=== PATIENT | female | born 1940 | race Caucasian/White ===

== ENCOUNTER 2021-07-14 10:07 | Inpatient (IN) | payer OTHER ==
[~2021-07-14] VITALS: Ht 175.3 cm; Wt 65.6 kg
[2021-07-14] MEDS ORDERED: ACETAMINOPHEN 325 MG TAB PO ONE (10:30)
[2021-07-14 11:47] LABS: INR 1.05 (0.9-1.15); Partial Thromboplastin Time 31.1 sec (23.6-33.0)
[2021-07-14 11:55] LABS: Basophils # (auto) 0 10 ^3/uL (0-0.2); Basophils % (auto) 0.1 % (0.0-2.0); Eosinophils # (auto) 0 10 ^3/uL (0-0.8); Hematocrit 43.4 % (36.0-46.0); Hemoglobin 14.5 g/dL (12.2-16.2); Lymphocytes # (auto) 1.3 10 ^3/uL (0.4-5.4); Lymphocytes % (auto) 15.3 % (10.0-50.0); Mean Corpuscular Hemoglobin 30.9 pg (28.0-32.0); Mean Corpuscular Hgb Conc. 33.5 g/dL (32.0-36.0); Mean Corpuscular Volume 92.2 fL (80.0-100.0); Monocytes # (auto) 0.6 10 ^3/uL (0-1.3); Monocytes % (auto) 7.4 % (0.0-12.0); Neutrophils # (auto) 6.7 10 ^3/uL (1.6-8.6); Neutrophils % (auto) 77.2 % (37.0-80.0); Nucleated Red Blood Cells % 0.1 %; White Blood Cell 8.7 10^3/uL (4.4-10.8)
[2021-07-14 11:57] LABS: Albumin 2.9 g/dL (3.4-5.0); Calcium 9.6 mg/dL (8.5-10.1); Potassium 3.9 mmol/L (3.5-5.1)
[2021-07-14 12:03] LABS: BUN/Creatinine Ratio 27.1; Bilirubin, Total 0.5 mg/dL (0.2-1.0); Total Protein 7.4 g/dL (6.4-8.2)
[2021-07-14] MEDS ORDERED: ACETAMINOPHEN 500 MG TAB PO PRN (14:15)
[2021-07-14] MEDS ORDERED: NITROGLYCERIN 0.4 MG SL TAB SL PRN (14:15)
[2021-07-14] MEDS ORDERED: MORPHINE SULFATE INJECTION 2 MG/ML SYRG IV PRN (14:15)
[2021-07-14] MEDS ORDERED: REMDESIVIR PER PHARMACY 0 ML IV SCH (14:15)
[2021-07-14 15:07] LABS: Magnesium 2.6 mg/dL (1.6-2.6)
[2021-07-14 15:15] LABS: CRP High Sensitivity 3.97 mg/dL (< 0.3)
[2021-07-14 15:16] LABS: Thyroid Stimulating Hormone 0.38 uIU/mL (0.358-3.74)
[2021-07-14] MEDS ORDERED: REMDESIVIR 200 MG in NS 210ml LOADING DOSE ADULT IV ONE (16:00)
[2021-07-14 17:00] VITALS: BP 108/61
[2021-07-14 19:00] VITALS: BP 108/61
[2021-07-14] MEDS: BUDESONIDE (INHALATION) 180 MCG IH IN SCH (21:01)
[2021-07-14 21:59] VITALS: BP 119/68
[2021-07-14] MEDS: ENOXAPARIN SOD 40 MG/0.4 ML SYRINGE SC SCH (22:49)
[2021-07-15] MEDS ORDERED: CARV3.1240 PO (04:55)
[2021-07-15] MEDS ORDERED: DONE1TAB88 PO (04:55)
[2021-07-15] MEDS ORDERED: ATOR40TA52 PO (04:55)
[2021-07-15] MEDS ORDERED: FURO20TA3 PO (04:55)
[2021-07-15 05:15] VITALS: BP 129/72
[2021-07-15 06:48] LABS: Basophils # (auto) 0 10 ^3/uL (0-0.2); Basophils % (auto) 0.4 % (0.0-2.0); Eosinophils # (auto) 0 10 ^3/uL (0-0.8); Hemoglobin 14.2 g/dL (12.2-16.2); Lymphocytes # (auto) 1.1 10 ^3/uL (0.4-5.4); Lymphocytes % (auto) 13.7 % (10.0-50.0); Mean Corpuscular Hemoglobin 31.6 pg (28.0-32.0); Mean Corpuscular Hgb Conc. 34.6 g/dL (32.0-36.0); Mean Corpuscular Volume 91.2 fL (80.0-100.0); Monocytes # (auto) 0.6 10 ^3/uL (0-1.3); Monocytes % (auto) 7.2 % (0.0-12.0); Neutrophils # (auto) 6.5 10 ^3/uL (1.6-8.6); Neutrophils % (auto) 78.7 % (37.0-80.0); Nucleated Red Blood Cells % 0.1 %; Red Cell Distribution Width 13.7 % (11.8-14.3); White Blood Cell 8.2 10^3/uL (4.4-10.8)
[2021-07-15 07:05] LABS: Chloride 113 mmol/L (98-107); Potassium 3.9 mmol/L (3.5-5.1); Sodium 145 mmol/L (136-145)
[2021-07-15 07:11] LABS: Alanine Aminotransferase 109 U/L (13-56); Albumin 2.5 g/dL (3.4-5.0); Anion Gap 10 (5-15); Aspartate Aminotransferase 85 U/L (15-37); BUN/Creatinine Ratio 46.6; Bilirubin, Total 0.4 mg/dL (0.2-1.0); Blood Urea Nitrogen 34 mg/dL (7-18); Carbon Dioxide 22 mmol/L (21-32); GFR African American 99 mL/min; GFR Non-African American 82 mL/min; Glucose 95 mg/dL (74-106)
[2021-07-15 07:47] LABS: Alkaline Phosphatase 96 U/L (45-117)
[2021-07-15] MEDS: ALBUTEROL SULF HFA 90MCG INH 200DOSE IN PRN ×2 (08:06→18:45)
[2021-07-15] MEDS: BUDESONIDE (INHALATION) 180 MCG IH IN SCH ×2 (08:06→18:45)
[2021-07-15 09:00] VITALS: BP 116/68
[2021-07-15] MEDS: DexAMETHasone SOD PHOS 10MG/1ML VIAL INJ IV SCH (10:02)
[2021-07-15] MEDS: ZINC SULFATE 220mg CAP or TAB PO SCH (10:02)
[2021-07-15] MEDS: ASCORBIC ACID 1,000 MG TAB PO SCH (10:02)
[2021-07-15] MEDS: ENOXAPARIN SOD 40 MG/0.4 ML SYRINGE SC SCH ×2 (10:02→21:47)
[2021-07-15] MEDS: CHOLECALCIFEROL (VITD3) 2,000 UNIT CAP/TAB PO SCH (10:02)
[2021-07-15] MEDS: AZITHROMYCIN 500MG/ 250ML 250 ML IV SCH (11:28)
[2021-07-15 13:00] VITALS: BP 112/64
[2021-07-15] MEDS: REMDESIVIR 100mg 100 MG in SODIUM CHL 0.9% 230 ML IV SCH (16:20)
[2021-07-15 16:23] VITALS: BP 106/64
[2021-07-15 17:30] VITALS: BP 104/62
[2021-07-15] MEDS: PIPERACILLIN-TAZOB 3.375GM 100 ML IV SCH (17:31)
[2021-07-15 22:00] VITALS: BP 107/67
[2021-07-16 05:00] VITALS: BP 142/80
[2021-07-16 05:24] LABS: Basophils # (auto) 0 10 ^3/uL (0-0.2); Basophils % (auto) 0.1 % (0.0-2.0); Eosinophils # (auto) 0 10 ^3/uL (0-0.8); Hematocrit 39.6 % (36.0-46.0); Hemoglobin 13.8 g/dL (12.2-16.2); Lymphocytes # (auto) 1.3 10 ^3/uL (0.4-5.4); Lymphocytes % (auto) 20.1 % (10.0-50.0); Mean Corpuscular Hemoglobin 31.7 pg (28.0-32.0); Mean Corpuscular Hgb Conc. 34.9 g/dL (32.0-36.0); Mean Corpuscular Volume 91.1 fL (80.0-100.0); Monocytes # (auto) 0.5 10 ^3/uL (0-1.3); Monocytes % (auto) 7.8 % (0.0-12.0); Neutrophils # (auto) 4.5 10 ^3/uL (1.6-8.6); Nucleated Red Blood Cells % 0.1 %; Red Blood Cells 4.35 10^6/uL (4.0-5.20); Red Cell Distribution Width 13.8 % (11.8-14.3); White Blood Cell 6.2 10^3/uL (4.4-10.8)
[2021-07-16 05:41] LABS: Potassium 3.8 mmol/L (3.5-5.1)
[2021-07-16 05:52] LABS: Albumin 2.4 g/dL (3.4-5.0); BUN/Creatinine Ratio 47.9; Bilirubin, Total 0.4 mg/dL (0.2-1.0); Calcium 9.4 mg/dL (8.5-10.1); Total Protein 6.9 g/dL (6.4-8.2)
[2021-07-16] MEDS: ALBUTEROL SULF HFA 90MCG INH 200DOSE IN PRN (06:45)
[2021-07-16] MEDS: BUDESONIDE (INHALATION) 180 MCG IH IN SCH ×2 (06:45→21:40)
[2021-07-16] MEDS: PIPERACILLIN-TAZOB 3.375GM 100 ML IV SCH ×4 (06:48→17:29)
[2021-07-16 08:30] VITALS: BP 106/62
[2021-07-16] MEDS: ENOXAPARIN SOD 40 MG/0.4 ML SYRINGE SC SCH ×2 (09:26→21:16)
[2021-07-16] MEDS: CHOLECALCIFEROL (VITD3) 2,000 UNIT CAP/TAB PO SCH (09:26)
[2021-07-16] MEDS: ZINC SULFATE 220mg CAP or TAB PO SCH (09:26)
[2021-07-16] MEDS: DexAMETHasone SOD PHOS 10MG/1ML VIAL INJ IV SCH (09:26)
[2021-07-16] MEDS: ASCORBIC ACID 1,000 MG TAB PO SCH (09:26)
[2021-07-16] MEDS: AZITHROMYCIN 500MG/ 250ML 250 ML IV SCH (10:10)
[2021-07-16] MEDS ORDERED: Ensure Enlive Strawberry 8oz Bottle PO SCH (12:00)
[2021-07-16] MEDS: Ensure HIGH Protein Chocolate 8oz Bottle PO SCH ×2 (12:15→18:00)
[2021-07-16 12:30] VITALS: BP 125/70
[2021-07-16 13:13] LABS: Urine Bacteria FEW /hpf (None Seen); Urine Blood Negative /uL (Negative); Urine Mucus FEW (None Seen); Urine Specific Gravity 1.027 (1.001-1.035); Urine WBC 3 /hpf (0 - 5)
[2021-07-16] MEDS: REMDESIVIR 100mg 100 MG in SODIUM CHL 0.9% 230 ML IV SCH (15:28)
[2021-07-16 16:53] VITALS: BP 118/67
[2021-07-16 22:00] VITALS: BP 132/70
[2021-07-16] MEDS ORDERED: HALOPERIDOL LACTATE 5 MG/ML INJ VIAL IM ONE (22:45)
[2021-07-17 05:00] VITALS: BP 145/78
[2021-07-17] MEDS: PIPERACILLIN-TAZOB 3.375GM 100 ML IV SCH ×5 (05:33→17:29)
[2021-07-17] MEDS: ALBUTEROL SULF HFA 90MCG INH 200DOSE IN PRN ×2 (06:45→22:07)
[2021-07-17] MEDS: BUDESONIDE (INHALATION) 180 MCG IH IN SCH ×2 (06:46→22:00)
[2021-07-17] MEDS: Ensure HIGH Protein Chocolate 8oz Bottle PO SCH ×3 (08:00→18:12)
[2021-07-17 08:16] LABS: Potassium 3.7 mmol/L (3.5-5.1)
[2021-07-17 08:22] LABS: Albumin 2.6 g/dL (3.4-5.0); BUN/Creatinine Ratio 43.7; Bilirubin, Total 0.6 mg/dL (0.2-1.0); Calcium 9.5 mg/dL (8.5-10.1)
[2021-07-17 09:00] VITALS: BP 121/58
[2021-07-17] MEDS: CHOLECALCIFEROL (VITD3) 2,000 UNIT CAP/TAB PO SCH (09:16)
[2021-07-17] MEDS: DexAMETHasone SOD PHOS 10MG/1ML VIAL INJ IV SCH (09:16)
[2021-07-17] MEDS: AZITHROMYCIN 500MG/ 250ML 250 ML IV SCH ×2 (09:16→11:39)
[2021-07-17] MEDS: ASCORBIC ACID 1,000 MG TAB PO SCH (09:16)
[2021-07-17] MEDS: ENOXAPARIN SOD 40 MG/0.4 ML SYRINGE SC SCH ×2 (09:17→20:59)
[2021-07-17 13:00] VITALS: BP 119/66
[2021-07-17] MEDS ORDERED: HALOPERIDOL LACTATE 5 MG/ML INJ VIAL IM PRN (14:30)
[2021-07-17] MEDS: REMDESIVIR 100mg 100 MG in SODIUM CHL 0.9% 230 ML IV SCH (15:14)
[2021-07-17 17:00] VITALS: BP 124/80
[2021-07-17] MEDS: ZINC SULFATE 220mg CAP or TAB PO SCH (17:29)
[2021-07-17 18:00] VITALS: BP 139/76
[2021-07-18 05:00] VITALS: BP 148/79
[2021-07-18] MEDS: PIPERACILLIN-TAZOB 3.375GM 100 ML IV SCH ×4 (05:13→21:43)
[2021-07-18 06:24] LABS: Potassium 3.5 mmol/L (3.5-5.1)
[2021-07-18 06:34] LABS: Albumin 2.7 g/dL (3.4-5.0); BUN/Creatinine Ratio 40.5; Calcium 9.5 mg/dL (8.5-10.1)
[2021-07-18 06:37] LABS: Bilirubin, Total 0.7 mg/dL (0.2-1.0); Total Protein 7.4 g/dL (6.4-8.2)
[2021-07-18] MEDS: ALBUTEROL SULF HFA 90MCG INH 200DOSE IN PRN ×2 (06:41→21:54)
[2021-07-18] MEDS: BUDESONIDE (INHALATION) 180 MCG IH IN SCH ×2 (06:42→21:54)
[2021-07-18 09:00] VITALS: BP 129/74
[2021-07-18] MEDS: Ensure HIGH Protein Chocolate 8oz Bottle PO SCH ×3 (10:41→18:38)
[2021-07-18] MEDS ORDERED: HALOPERIDOL LACTATE 5 MG/ML INJ VIAL IM PRN (11:00)
[2021-07-18] MEDS: ZINC SULFATE 220mg CAP or TAB PO SCH (11:30)
[2021-07-18] MEDS: CHOLECALCIFEROL (VITD3) 2,000 UNIT CAP/TAB PO SCH (11:30)
[2021-07-18] MEDS: AZITHROMYCIN 500MG/ 250ML 250 ML IV SCH (11:30)
[2021-07-18] MEDS: DexAMETHasone SOD PHOS 10MG/1ML VIAL INJ IV SCH (11:30)
[2021-07-18] MEDS: ASCORBIC ACID 1,000 MG TAB PO SCH (11:30)
[2021-07-18] MEDS: ENOXAPARIN SOD 40 MG/0.4 ML SYRINGE SC SCH ×2 (11:30→21:43)
[2021-07-18 13:00] VITALS: BP 135/104
[2021-07-18] MEDS: REMDESIVIR 100mg 100 MG in SODIUM CHL 0.9% 230 ML IV SCH (15:37)
[2021-07-18 17:17] VITALS: BP 148/91
[2021-07-18 22:00] VITALS: BP 148/73
[2021-07-19] MEDS: PIPERACILLIN-TAZOB 3.375GM 100 ML IV SCH ×3 (04:42→21:31)
[2021-07-19] MEDS: BUDESONIDE (INHALATION) 180 MCG IH IN SCH ×2 (08:25→19:42)
[2021-07-19] MEDS: ALBUTEROL SULF HFA 90MCG INH 200DOSE IN PRN ×2 (08:25→19:42)
[2021-07-19 09:00] VITALS: BP 146/76
[2021-07-19] MEDS: Ensure HIGH Protein Chocolate 8oz Bottle PO SCH ×3 (09:25→18:06)
[2021-07-19] MEDS: DexAMETHasone SOD PHOS 10MG/1ML VIAL INJ IV SCH (09:41)
[2021-07-19] MEDS: AZITHROMYCIN 500MG/ 250ML 250 ML IV SCH (09:41)
[2021-07-19] MEDS: ASCORBIC ACID 1,000 MG TAB PO SCH (09:42)
[2021-07-19] MEDS: ENOXAPARIN SOD 40 MG/0.4 ML SYRINGE SC SCH ×2 (09:42→21:31)
[2021-07-19] MEDS: CHOLECALCIFEROL (VITD3) 2,000 UNIT CAP/TAB PO SCH (09:42)
[2021-07-19] MEDS: ZINC SULFATE 220mg CAP or TAB PO SCH (09:42)
[2021-07-19] MEDS ORDERED: FUROSEMIDE 20 MG/2 ML VIAL IV ONE (10:45)
[2021-07-19] MEDS ORDERED: POTASSIUM CHL 20 Meq TABLET PO ONE (10:45)
[2021-07-19 13:00] VITALS: BP 124/61
[2021-07-19 17:00] VITALS: BP 145/69
[2021-07-19 21:55] VITALS: BP 133/65
[2021-07-20 03:39] VITALS: BP 145/69
[2021-07-20] MEDS: PIPERACILLIN-TAZOB 3.375GM 100 ML IV SCH ×3 (06:04→21:52)
[2021-07-20 06:06] LABS: Basophils # (auto) 0 10 ^3/uL (0-0.2); Basophils % (auto) 0.2 % (0.0-2.0); Eosinophils # (auto) 0 10 ^3/uL (0-0.8); Eosinophils % (auto) 0.3 % (0.0-7.0); Hemoglobin 13.3 g/dL (12.2-16.2); Lymphocytes # (auto) 1.1 10 ^3/uL (0.4-5.4); Lymphocytes % (auto) 14.6 % (10.0-50.0); Mean Corpuscular Hemoglobin 31.3 pg (28.0-32.0); Mean Corpuscular Hgb Conc. 34.2 g/dL (32.0-36.0); Mean Corpuscular Volume 91.4 fL (80.0-100.0); Monocytes # (auto) 0.7 10 ^3/uL (0-1.3); Monocytes % (auto) 9.4 % (0.0-12.0); Neutrophils # (auto) 5.6 10 ^3/uL (1.6-8.6); Neutrophils % (auto) 75.5 % (37.0-80.0); Nucleated Red Blood Cells % 0.1 %; Red Blood Cells 4.26 10^6/uL (4.0-5.20); Red Cell Distribution Width 13.6 % (11.8-14.3); White Blood Cell 7.4 10^3/uL (4.4-10.8)
[2021-07-20] MEDS: BUDESONIDE (INHALATION) 180 MCG IH IN SCH ×2 (06:26→19:25)
[2021-07-20] MEDS: ALBUTEROL SULF HFA 90MCG INH 200DOSE IN PRN (06:27)
[2021-07-20 06:30] LABS: Potassium 3.8 mmol/L (3.5-5.1)
[2021-07-20 06:41] LABS: Albumin 2.3 g/dL (3.4-5.0); BUN/Creatinine Ratio 43.8; Bilirubin, Total 0.6 mg/dL (0.2-1.0); Calcium 9.1 mg/dL (8.5-10.1); Total Protein 6.4 g/dL (6.4-8.2)
[2021-07-20 08:00] VITALS: BP 145/69
[2021-07-20 09:00] VITALS: BP 145/69
[2021-07-20] MEDS: Ensure HIGH Protein Chocolate 8oz Bottle PO SCH ×3 (11:46→18:21)
[2021-07-20] MEDS: ZINC SULFATE 220mg CAP or TAB PO SCH (11:47)
[2021-07-20] MEDS: DexAMETHasone SOD PHOS 10MG/1ML VIAL INJ IV SCH (11:47)
[2021-07-20] MEDS: ENOXAPARIN SOD 40 MG/0.4 ML SYRINGE SC SCH ×2 (11:47→21:52)
[2021-07-20] MEDS: ASCORBIC ACID 1,000 MG TAB PO SCH (11:47)
[2021-07-20] MEDS: CHOLECALCIFEROL (VITD3) 2,000 UNIT CAP/TAB PO SCH (11:47)
[2021-07-20 13:00] VITALS: BP 125/69
[2021-07-20 17:00] VITALS: BP 135/63
[2021-07-20 22:00] VITALS: BP 136/67
[2021-07-21] VITALS (7 sets, daily range): BP systolic 118–151; BP diastolic 62–76
[2021-07-21] MEDS: PIPERACILLIN-TAZOB 3.375GM 100 ML IV SCH ×3 (06:36→22:01)
[2021-07-21] MEDS: BUDESONIDE (INHALATION) 180 MCG IH IN SCH ×2 (09:17→20:23)
[2021-07-21] MEDS: ALBUTEROL SULF HFA 90MCG INH 200DOSE IN PRN ×2 (09:17→20:24)
[2021-07-21] MEDS: Ensure HIGH Protein Chocolate 8oz Bottle PO SCH ×3 (09:23→17:52)
[2021-07-21] MEDS: CHOLECALCIFEROL (VITD3) 2,000 UNIT CAP/TAB PO SCH (09:24)
[2021-07-21] MEDS: ENOXAPARIN SOD 40 MG/0.4 ML SYRINGE SC SCH ×2 (09:24→22:01)
[2021-07-21] MEDS: ZINC SULFATE 220mg CAP or TAB PO SCH (09:24)
[2021-07-21] MEDS: DexAMETHasone SOD PHOS 10MG/1ML VIAL INJ IV SCH (09:24)
[2021-07-21] MEDS: ASCORBIC ACID 1,000 MG TAB PO SCH (09:24)
[2021-07-22 05:05] VITALS: BP 148/80
[2021-07-22] MEDS: PIPERACILLIN-TAZOB 3.375GM 100 ML IV SCH ×3 (05:36→21:07)
[2021-07-22] MEDS: BUDESONIDE (INHALATION) 180 MCG IH IN SCH ×2 (07:22→22:40)
[2021-07-22] MEDS: ALBUTEROL SULF HFA 90MCG INH 200DOSE IN PRN ×2 (07:22→22:40)
[2021-07-22 08:00] VITALS: BP 146/72
[2021-07-22] MEDS: Ensure HIGH Protein Chocolate 8oz Bottle PO SCH ×3 (08:39→17:56)
[2021-07-22 09:00] VITALS: BP 146/42
[2021-07-22] MEDS: DexAMETHasone SOD PHOS 10MG/1ML VIAL INJ IV SCH (09:38)
[2021-07-22] MEDS: ENOXAPARIN SOD 40 MG/0.4 ML SYRINGE SC SCH ×2 (09:39→21:08)
[2021-07-22] MEDS: CHOLECALCIFEROL (VITD3) 2,000 UNIT CAP/TAB PO SCH (09:39)
[2021-07-22] MEDS: ASCORBIC ACID 1,000 MG TAB PO SCH (09:39)
[2021-07-22] MEDS: ZINC SULFATE 220mg CAP or TAB PO SCH (09:39)
[2021-07-22 13:00] VITALS: BP 131/63
[2021-07-22 16:53] VITALS: BP 138/66
[2021-07-22 22:00] VITALS: BP 123/70
[2021-07-23 05:00] VITALS: BP 139/83
[2021-07-23] MEDS: PIPERACILLIN-TAZOB 3.375GM 100 ML IV SCH ×3 (05:25→22:00)
[2021-07-23 06:35] LABS: INR 1.11 (0.9-1.15); Partial Thromboplastin Time 28.4 sec (23.6-33.0)
[2021-07-23 06:38] LABS: Albumin 2.1 g/dL (3.4-5.0); Magnesium 2.7 mg/dL (1.6-2.6); Potassium 3.6 mmol/L (3.5-5.1)
[2021-07-23 06:44] LABS: BUN/Creatinine Ratio 39.3; Bilirubin, Total 0.7 mg/dL (0.2-1.0); Phosphorus 2.3 mg/dL (2.5-4.90); Total Protein 6.1 g/dL (6.4-8.2)
[2021-07-23 06:49] LABS: Hemoglobin 13.3 g/dL (12.2-16.2); Mean Corpuscular Hemoglobin 31.8 pg (28.0-32.0); Mean Corpuscular Volume 90.8 fL (80.0-100.0); Red Blood Cells 4.19 10^6/uL (4.0-5.20); Red Cell Distribution Width 13.4 % (11.8-14.3); White Blood Cell 8.6 10^3/uL (4.4-10.8)
[2021-07-23] MEDS: BUDESONIDE (INHALATION) 180 MCG IH IN SCH ×2 (06:59→18:47)
[2021-07-23] MEDS: ALBUTEROL SULF HFA 90MCG INH 200DOSE IN PRN ×2 (06:59→18:48)
[2021-07-23 07:02] LABS: Basophils % (manual) 0 (0.0-2.0); Blast Cells 0; Eosinophils % (manual) 0 (0-7); Myelocytes % 0; Promyelocytes % 0; Reactive Lymphocytes 0
[2021-07-23 08:00] LABS: Band Neutrophils % (manual) 1; Lymphocytes % (manual) 14 (10.0-50.0); Metamyelocytes % 2; Monocytes % (manual) 5 (0-12)
[2021-07-23 08:41] VITALS: BP 131/55
[2021-07-23] MEDS: Ensure HIGH Protein Chocolate 8oz Bottle PO SCH ×3 (10:57→18:04)
[2021-07-23] MEDS: DexAMETHasone SOD PHOS 10MG/1ML VIAL INJ IV SCH (10:58)
[2021-07-23] MEDS: ZINC SULFATE 220mg CAP or TAB PO SCH (10:58)
[2021-07-23] MEDS: ASCORBIC ACID 1,000 MG TAB PO SCH (10:58)
[2021-07-23] MEDS: CHOLECALCIFEROL (VITD3) 2,000 UNIT CAP/TAB PO SCH (10:58)
[2021-07-23] MEDS: ENOXAPARIN SOD 40 MG/0.4 ML SYRINGE SC SCH ×2 (10:59→22:00)
[2021-07-23 12:57] VITALS: BP 135/54
[2021-07-23 17:00] VITALS: BP 126/73
[2021-07-23 17:40] VITALS: BP 126/73
[2021-07-23 21:54] VITALS: BP 111/53
[2021-07-24 01:08] VITALS: BP 111/53
[2021-07-24 05:00] VITALS: BP 113/75
[2021-07-24] MEDS: PIPERACILLIN-TAZOB 3.375GM 100 ML IV SCH (05:46)
[2021-07-24] MEDS: BUDESONIDE (INHALATION) 180 MCG IH IN SCH ×2 (07:23→18:56)
[2021-07-24] MEDS: ALBUTEROL SULF HFA 90MCG INH 200DOSE IN PRN (07:24)
[2021-07-24 09:00] VITALS: BP 128/58
[2021-07-24] MEDS: Ensure HIGH Protein Chocolate 8oz Bottle PO SCH ×3 (10:24→18:12)
[2021-07-24] MEDS: ENOXAPARIN SOD 40 MG/0.4 ML SYRINGE SC SCH ×2 (10:25→21:53)
[2021-07-24] MEDS: CHOLECALCIFEROL (VITD3) 2,000 UNIT CAP/TAB PO SCH (10:25)
[2021-07-24] MEDS: ASCORBIC ACID 1,000 MG TAB PO SCH (10:25)
[2021-07-24] MEDS: DexAMETHasone SOD PHOS 10MG/1ML VIAL INJ IV SCH (10:25)
[2021-07-24] MEDS: ZINC SULFATE 220mg CAP or TAB PO SCH (10:25)
[2021-07-24 13:00] VITALS: BP 123/67
[2021-07-24 17:00] VITALS: BP 140/64
[2021-07-24 21:51] VITALS: BP 130/57
[2021-07-24] MEDS: DOXYCYCLINE 100 MG TAB/CAP PO SCH (21:53)
[2021-07-25 05:24] VITALS: BP 111/68
[2021-07-25 09:00] VITALS: BP 145/99
[2021-07-25] MEDS: Ensure HIGH Protein Chocolate 8oz Bottle PO SCH ×3 (09:07→18:08)
[2021-07-25] MEDS: ZINC SULFATE 220mg CAP or TAB PO SCH (09:22)
[2021-07-25] MEDS: CHOLECALCIFEROL (VITD3) 2,000 UNIT CAP/TAB PO SCH (09:23)
[2021-07-25] MEDS: ASCORBIC ACID 1,000 MG TAB PO SCH (09:23)
[2021-07-25] MEDS: ENOXAPARIN SOD 40 MG/0.4 ML SYRINGE SC SCH ×2 (09:23→22:34)
[2021-07-25] MEDS: DOXYCYCLINE 100 MG TAB/CAP PO SCH ×2 (09:23→22:34)
[2021-07-25] MEDS ORDERED: DexAMETHasone SOD PHOS 4 MG/1ML SDV INJ IV SCH (10:00)
[2021-07-25] MEDS: BUDESONIDE (INHALATION) 180 MCG IH IN SCH ×2 (10:00→22:19)
[2021-07-25 13:00] VITALS: BP 120/67
[2021-07-25 17:00] VITALS: BP 111/58
[2021-07-25] MEDS: ALBUTEROL SULF HFA 90MCG INH 200DOSE IN PRN (22:19)
[2021-07-26 05:30] VITALS: BP 115/55
[2021-07-26] MEDS: ALBUTEROL SULF HFA 90MCG INH 200DOSE IN PRN ×2 (06:53→22:18)
[2021-07-26] MEDS: BUDESONIDE (INHALATION) 180 MCG IH IN SCH ×2 (06:53→22:18)
[2021-07-26] MEDS: Ensure HIGH Protein Chocolate 8oz Bottle PO SCH ×3 (08:00→18:00)
[2021-07-26 09:00] VITALS: BP 128/63
[2021-07-26] MEDS: CHOLECALCIFEROL (VITD3) 2,000 UNIT CAP/TAB PO SCH (10:17)
[2021-07-26] MEDS: ENOXAPARIN SOD 40 MG/0.4 ML SYRINGE SC SCH (10:17)
[2021-07-26] MEDS: DOXYCYCLINE 100 MG TAB/CAP PO SCH ×2 (10:17→22:06)
[2021-07-26] MEDS: DexAMETHasone 4 MG TAB PO SCH (10:17)
[2021-07-26] MEDS: ZINC SULFATE 220mg CAP or TAB PO SCH (10:18)
[2021-07-26] MEDS: ASCORBIC ACID 1,000 MG TAB PO SCH (10:18)
[2021-07-26 13:00] VITALS: BP_SYST 105; BP_SYST 115; BP_DIAS 77; BP_DIAS 81
[2021-07-26 17:00] VITALS: BP 103/65
[2021-07-26 17:17] VITALS: BP 103/65
[2021-07-26 22:00] VITALS: BP_SYST 104; BP_SYST 133; BP_DIAS 59; BP_DIAS 67
[2021-07-27 05:00] VITALS: BP 133/67
[2021-07-27] MEDS: BUDESONIDE (INHALATION) 180 MCG IH IN SCH (07:24)
[2021-07-27] MEDS: ALBUTEROL SULF HFA 90MCG INH 200DOSE IN PRN ×2 (07:25→18:56)
[2021-07-27] MEDS: Ensure HIGH Protein Chocolate 8oz Bottle PO SCH ×3 (08:00→18:43)
[2021-07-27] MEDS: DexAMETHasone 4 MG TAB PO SCH (09:25)
[2021-07-27] MEDS: ASCORBIC ACID 1,000 MG TAB PO SCH (09:25)
[2021-07-27] MEDS: DOXYCYCLINE 100 MG TAB/CAP PO SCH ×2 (09:25→21:04)
[2021-07-27] MEDS: ZINC SULFATE 220mg CAP or TAB PO SCH (09:25)
[2021-07-27] MEDS: ENOXAPARIN SOD 40 MG/0.4 ML SYRINGE SC SCH (09:26)
[2021-07-27] MEDS: CHOLECALCIFEROL (VITD3) 2,000 UNIT CAP/TAB PO SCH (09:26)
[2021-07-27 09:42] VITALS: BP 144/83
[2021-07-27] MEDS ORDERED: FUROSEMIDE 20 MG/2 ML VIAL IV ONE (18:00)
[2021-07-27] MEDS ORDERED: SODIUM CHLORIDE 0.9% 2,000 ML IV ONE (18:00)
[2021-07-27 19:35] LABS: Albumin 2.3 g/dL (3.4-5.0); Anion Gap 7 (5-15); Blood Urea Nitrogen 22 mg/dL (7-18); Calcium 9.4 mg/dL (8.5-10.1); Carbon Dioxide 23 mmol/L (21-32); Chloride 113 mmol/L (98-107); Glucose 130 mg/dL (74-106); Magnesium 2.4 mg/dL (1.6-2.6); Potassium 3.9 mmol/L (3.5-5.1); Sodium 143 mmol/L (136-145)
[2021-07-27 19:37] LABS: Alanine Aminotransferase 82 U/L (13-56); Aspartate Aminotransferase 30 U/L (15-37); BUN/Creatinine Ratio 32.8; GFR African American 109 mL/min; GFR Non-African American 90 mL/min
[2021-07-27 19:39] LABS: Alkaline Phosphatase 84 U/L (45-117); Bilirubin, Total 0.4 mg/dL (0.2-1.0); Phosphorus 2.6 mg/dL (2.5-4.90); Total Protein 6.7 g/dL (6.4-8.2)
[2021-07-27 22:00] VITALS: BP 131/79
[2021-07-28 05:00] VITALS: BP 151/73
[2021-07-28 05:23] LABS: Basophils # (auto) 0.1 10 ^3/uL (0-0.2); Basophils % (auto) 0.6 % (0.0-2.0); Eosinophils # (auto) 0.1 10 ^3/uL (0-0.8); Eosinophils % (auto) 0.8 % (0.0-7.0); Hematocrit 38.4 % (36.0-46.0); Hemoglobin 13.3 g/dL (12.2-16.2); Lymphocytes # (auto) 1.8 10 ^3/uL (0.4-5.4); Lymphocytes % (auto) 21.6 % (10.0-50.0); Mean Corpuscular Hemoglobin 31.3 pg (28.0-32.0); Mean Corpuscular Hgb Conc. 34.7 g/dL (32.0-36.0); Mean Corpuscular Volume 90.1 fL (80.0-100.0); Monocytes # (auto) 0.6 10 ^3/uL (0-1.3); Monocytes % (auto) 7.4 % (0.0-12.0); Neutrophils % (auto) 69.6 % (37.0-80.0); Nucleated Red Blood Cells % 0.1 %; Red Blood Cells 4.25 10^6/uL (4.0-5.20); Red Cell Distribution Width 13.2 % (11.8-14.3); White Blood Cell 8.6 10^3/uL (4.4-10.8)
[2021-07-28 05:38] LABS: Calcium 8.8 mg/dL (8.5-10.1); Potassium 3.6 mmol/L (3.5-5.1)
[2021-07-28] MEDS: ALBUTEROL SULF HFA 90MCG INH 200DOSE IN PRN ×2 (06:22→18:14)
[2021-07-28] MEDS: BUDESONIDE (INHALATION) 180 MCG IH IN SCH ×3 (06:23→22:51)
[2021-07-28] MEDS: Ensure HIGH Protein Chocolate 8oz Bottle PO SCH ×3 (08:54→18:17)
[2021-07-28] MEDS: DOXYCYCLINE 100 MG TAB/CAP PO SCH ×2 (08:55→22:42)
[2021-07-28] MEDS: ZINC SULFATE 220mg CAP or TAB PO SCH (08:55)
[2021-07-28] MEDS: CHOLECALCIFEROL (VITD3) 2,000 UNIT CAP/TAB PO SCH (08:56)
[2021-07-28] MEDS: ENOXAPARIN SOD 40 MG/0.4 ML SYRINGE SC SCH (08:56)
[2021-07-28] MEDS: DexAMETHasone 4 MG TAB PO SCH (08:56)
[2021-07-28] MEDS: ASCORBIC ACID 1,000 MG TAB PO SCH (08:56)
[2021-07-28 09:18] VITALS: BP 142/74
[2021-07-28 12:43] VITALS: BP 120/67
[2021-07-28 17:00] VITALS: BP 130/73
[2021-07-28 22:00] VITALS: BP 107/61
[2021-07-29 04:39] LABS: Basophils # (auto) 0 10 ^3/uL (0-0.2); Basophils % (auto) 0.5 % (0.0-2.0); Eosinophils # (auto) 0 10 ^3/uL (0-0.8); Eosinophils % (auto) 0.2 % (0.0-7.0); Hematocrit 36.5 % (36.0-46.0); Hemoglobin 12.7 g/dL (12.2-16.2); Lymphocytes # (auto) 1.6 10 ^3/uL (0.4-5.4); Lymphocytes % (auto) 16.9 % (10.0-50.0); Mean Corpuscular Hemoglobin 31.3 pg (28.0-32.0); Mean Corpuscular Hgb Conc. 34.8 g/dL (32.0-36.0); Mean Corpuscular Volume 89.9 fL (80.0-100.0); Monocytes # (auto) 0.6 10 ^3/uL (0-1.3); Monocytes % (auto) 6.6 % (0.0-12.0); Neutrophils # (auto) 7.4 10 ^3/uL (1.6-8.6); Neutrophils % (auto) 75.8 % (37.0-80.0); Red Blood Cells 4.06 10^6/uL (4.0-5.20); Red Cell Distribution Width 13.4 % (11.8-14.3); White Blood Cell 9.7 10^3/uL (4.4-10.8)
[2021-07-29 04:53] LABS: INR 1.06 (0.9-1.15); Partial Thromboplastin Time 24.4 sec (23.6-33.0)
[2021-07-29 04:59] LABS: Potassium 3.6 mmol/L (3.5-5.1)
[2021-07-29 05:00] VITALS: BP 151/75
[2021-07-29 05:03] LABS: Albumin 2.1 g/dL (3.4-5.0); Calcium 9.2 mg/dL (8.5-10.1); Magnesium 2.1 mg/dL (1.6-2.6)
[2021-07-29 05:11] LABS: Bilirubin, Total 0.4 mg/dL (0.2-1.0)
[2021-07-29] MEDS: ALBUTEROL SULF HFA 90MCG INH 200DOSE IN PRN (07:09)
[2021-07-29] MEDS: BUDESONIDE (INHALATION) 180 MCG IH IN SCH ×2 (07:09→22:10)
[2021-07-29] MEDS: ZINC SULFATE 220mg CAP or TAB PO SCH (08:34)
[2021-07-29] MEDS: Ensure HIGH Protein Chocolate 8oz Bottle PO SCH ×3 (08:34→17:17)
[2021-07-29] MEDS: DexAMETHasone 4 MG TAB PO SCH (08:34)
[2021-07-29] MEDS: ASCORBIC ACID 1,000 MG TAB PO SCH (08:34)
[2021-07-29] MEDS: DOXYCYCLINE 100 MG TAB/CAP PO SCH ×2 (08:34→22:07)
[2021-07-29] MEDS: CHOLECALCIFEROL (VITD3) 2,000 UNIT CAP/TAB PO SCH (08:35)
[2021-07-29] MEDS: ENOXAPARIN SOD 40 MG/0.4 ML SYRINGE SC SCH (08:35)
[2021-07-29 09:00] VITALS: BP 140/68
[2021-07-29 13:00] VITALS: BP 124/65
[2021-07-29 17:00] VITALS: BP 114/66
[2021-07-29 22:00] VITALS: BP 131/78
[2021-07-30 04:11] VITALS: BP 124/65
[2021-07-30 05:00] VITALS: BP 147/72
[2021-07-30] MEDS: BUDESONIDE (INHALATION) 180 MCG IH IN SCH ×2 (05:57→22:19)
[2021-07-30] MEDS: ALBUTEROL SULF HFA 90MCG INH 200DOSE IN PRN ×2 (05:57→22:19)
[2021-07-30 09:00] VITALS: BP 172/87
[2021-07-30] MEDS: Ensure HIGH Protein Chocolate 8oz Bottle PO SCH ×3 (09:21→19:02)
[2021-07-30] MEDS: ZINC SULFATE 220mg CAP or TAB PO SCH (09:22)
[2021-07-30] MEDS: DexAMETHasone 4 MG TAB PO SCH (09:22)
[2021-07-30] MEDS: DOXYCYCLINE 100 MG TAB/CAP PO SCH (09:22)
[2021-07-30] MEDS: ASCORBIC ACID 1,000 MG TAB PO SCH (09:23)
[2021-07-30] MEDS: ENOXAPARIN SOD 40 MG/0.4 ML SYRINGE SC SCH (09:23)
[2021-07-30] MEDS: CHOLECALCIFEROL (VITD3) 2,000 UNIT CAP/TAB PO SCH (09:23)
[2021-07-30] MEDS ORDERED: LISINOPRIL 10 MG TAB PO ONE (11:15)
[2021-07-30 13:00] VITALS: BP 142/78
[2021-07-30 17:00] VITALS: BP 102/65
[2021-07-30 21:31] VITALS: BP 117/74
[2021-07-30] MEDS: DONEPEZIL HYDROCHLORIDE 5 MG TAB PO SCH (23:39)
[2021-07-31 04:43] VITALS: BP 150/81
[2021-07-31] MEDS: BUDESONIDE (INHALATION) 180 MCG IH IN SCH ×2 (06:15→22:26)
[2021-07-31] MEDS: ALBUTEROL SULF HFA 90MCG INH 200DOSE IN PRN ×2 (06:15→22:26)
[2021-07-31 09:00] VITALS: BP 136/71
[2021-07-31] MEDS ORDERED: DexAMETHasone 4 MG TAB PO SCH (10:00)
[2021-07-31] MEDS: ASCORBIC ACID 1,000 MG TAB PO SCH (10:42)
[2021-07-31] MEDS: CHOLECALCIFEROL (VITD3) 2,000 UNIT CAP/TAB PO SCH (10:42)
[2021-07-31] MEDS: LISINOPRIL 10 MG TAB PO SCH (10:42)
[2021-07-31] MEDS: Ensure HIGH Protein Chocolate 8oz Bottle PO SCH ×3 (10:43→18:26)
[2021-07-31 13:00] VITALS: BP 110/65
[2021-07-31 17:02] VITALS: BP 108/63
[2021-07-31] MEDS: DONEPEZIL HYDROCHLORIDE 5 MG TAB PO SCH (21:06)
[2021-07-31 22:00] VITALS: BP 101/58
[2021-08-01 04:48] VITALS: BP 109/63
[2021-08-01] MEDS: BUDESONIDE (INHALATION) 180 MCG IH IN SCH (05:58)
[2021-08-01] MEDS: ALBUTEROL SULF HFA 90MCG INH 200DOSE IN PRN (05:58)
[2021-08-01 09:00] VITALS: BP 104/66
[2021-08-01] MEDS: LISINOPRIL 10 MG TAB PO SCH (09:58)
[2021-08-01] MEDS ORDERED: ASPirin 81 mg TAB PO SCH (10:00)
[2021-08-01] MEDS: CHOLECALCIFEROL (VITD3) 2,000 UNIT CAP/TAB PO SCH (10:02)
[2021-08-01] MEDS: ASCORBIC ACID 1,000 MG TAB PO SCH (10:02)
[2021-08-01] MEDS: Ensure HIGH Protein Chocolate 8oz Bottle PO SCH ×3 (10:03→17:33)
[2021-08-01 13:00] VITALS: BP 113/61
[2021-08-01 15:50] VITALS: BP 104/66
[2021-08-01 17:00] VITALS: BP 121/70
== END 2021-08-01 18:30 | disposition hospice, home (50) | DRG 871 ==
LOC: EDBD 10:07 → ER 10:07 → TELE 14:12 → TELE-E-ADS 16:02 → TELE-EAST 07-25 20:40 → TELE-CENTR 07-27 12:50 → CENTRAL 07-31 10:21
PROVIDERS: ADMIT Nurse Practitioner Acute Care; ATTEND Internal Medicine
PROC: XW033E5 Introduction of Remdesivir Anti-infective into Peripheral Vein, Percutaneous Approach, New Technology Group 5 (ICD-10-PCS; principal; 2021-07-14)
DX: A41.89 Other specified sepsis (principal); U07.1 COVID-19; G93.41 Metabolic encephalopathy; J12.82 Pneumonia due to coronavirus disease 2019; J96.01 Acute respiratory failure with hypoxia; E43 Unspecified severe protein-calorie malnutrition; G92.8 Other toxic encephalopathy; J98.11 Atelectasis; I13.0 Hypertensive heart and chronic kidney disease with heart failure and stage 1 through stage 4 chronic kidney disease, or unspecified chronic kidney disease; G30.9 Alzheimer's disease, unspecified; D89.839 Cytokine release syndrome, grade unspecified; N18.31 Chronic kidney disease, stage 3a; I25.10 Atherosclerotic heart disease of native coronary artery without angina pectoris; F02.80 Dementia in other diseases classified elsewhere, unspecified severity, without behavioral disturbance, psychotic disturbance, mood disturbance, and anxiety; I50.9 Heart failure, unspecified; R00.1 Bradycardia, unspecified; R74.01 Elevation of levels of liver transaminase levels; Z79.82 Long term (current) use of aspirin; Z95.1 Presence of aortocoronary bypass graft; Z68.21 Body mass index [BMI] 21.0-21.9, adult
CPT/HCPCS: 36415; 36600; 70450; 71045; 80048; 80053; 81001; 82607; 82728; 82805; 83615; 83735; 84100; 84443; 84484; 85007; 85025; 85027; 85379; 85610; 85730; 86141; 87040; 87081; 87426; 93005; 93306; 94640; G0378; J1100; J2543

== ENCOUNTER 2023-04-06 20:55 | Emergency (ER) | payer OTHER ==
[~2023-04-06] VITALS: Ht 162.6 cm; Wt 73.5 kg
[~2023-04-06 20:55] MED LIST: ATOR40TA52 PO; CARV3.1240 PO; DONE1TAB88 PO; FURO20TA3 PO
[2023-04-06] MEDS ORDERED: ASPirin 325 MG TAB PO ONE (21:30)
[2023-04-06 22:31] LABS: Basophils # (auto) 0.1 10 ^3/uL (0-0.2); Basophils % (auto) 0.5 % (0.0-2.0); Eosinophils # (auto) 0 10 ^3/uL (0-0.8); Hematocrit 39.5 % (36.0-46.0); Hemoglobin 13.7 g/dL (12.2-16.2); Lymphocytes # (auto) 1.3 10 ^3/uL (0.4-5.4); Lymphocytes % (auto) 9.4 % (10.0-50.0); Mean Corpuscular Hemoglobin 32.2 pg (28.0-32.0); Mean Corpuscular Hgb Conc. 34.6 g/dL (32.0-36.0); Mean Corpuscular Volume 93.1 fL (80.0-100.0); Monocytes # (auto) 1.3 10 ^3/uL (0-1.3); Monocytes % (auto) 9.1 % (0.0-12.0); Neutrophils # (auto) 11.4 10 ^3/uL (1.6-8.6); Red Blood Cells 4.24 10^6/uL (4.0-5.20); Red Cell Distribution Width 13.9 % (11.8-14.3); White Blood Cell 14.1 10^3/uL (4.4-10.8)
[2023-04-06 22:47] LABS: Albumin 3.1 g/dL (3.4-5.0); Calcium 9.7 mg/dL (8.5-10.1); Magnesium 2.2 mg/dL (1.6-2.6); Potassium 3.6 mmol/L (3.5-5.1)
[2023-04-06 22:50] LABS: Bilirubin, Total 0.6 mg/dL (0.2-1.0); Total Protein 7.8 g/dL (6.4-8.2)
[2023-04-06 22:52] LABS: INR 1.05 (0.9-1.15); Partial Thromboplastin Time 28.4 sec (24.6-33.4)
[2023-04-07] MEDS ORDERED: DOXY-286 PO (01:35)
[2023-04-07] MEDS ORDERED: METH4PAK PO (01:35)
[2023-04-07] MEDS ORDERED: DexAMETHasone SOD PHOS 10MG/1ML VIAL INJ IV ONE (01:45)
[2023-04-07] MEDS ORDERED: PIPERACILLIN-TAZOB 3.375GM 100 ML IV ONE (01:45)
[2023-04-07 03:06] VITALS: BP 142/98
[2023-04-07] MEDS ORDERED: IOHEXOL 350 MG/ML 100ML IJ ONE (03:34)
[2023-04-10] MEDS ORDERED: ACETAMINOPHEN 325 MG TAB PO PRN (20:00)
[2023-04-11] MEDS ORDERED: ENOXAPARIN SOD 40 MG/0.4 ML SYRINGE SC SCH (10:00)
[2023-04-11] MEDS ORDERED: POTA-180 PO (13:06)
== END 2023-04-07 02:02 | disposition home or self-care (01) ==
LOC: EDBD 20:55 → EDUNIT# 20:55 → ER 20:57
DX: J18.9 Pneumonia, unspecified organism (principal); J44.1 Chronic obstructive pulmonary disease with (acute) exacerbation; I11.0 Hypertensive heart disease with heart failure; I50.9 Heart failure, unspecified
CPT/HCPCS: 36415; 71045; 71275; 80053; 83605; 83735; 83880; 84484; 85025; 85379; 85610; 85730; 87040; 87077; 87186; 93005; 96365; 96375; 99285; J1100; J2543; Q9967